=== PATIENT | female | born 1970 | race Caucasian/White ===

== ENCOUNTER 2022-08-05 12:37 | Outpatient (REF) | payer BC, SELFPAY | END 2022-08-05 12:38 | disposition home or self-care (01) | LOC: HO.MDS 12:37 | PROVIDERS: PCP Family Medicine; Visit Provider Internal Medicine | DX: R79.0 Abnormal level of blood mineral (principal); G25.81 Restless legs syndrome | CPT/HCPCS: 96365; J1756 ==

== ENCOUNTER 2022-08-17 09:34 | Outpatient (REF) | payer BC, SELFPAY | END 2022-08-17 09:35 | disposition home or self-care (01) | LOC: HO.MDS 09:34 | PROVIDERS: Visit Provider Internal Medicine | DX: R79.0 Abnormal level of blood mineral (principal); G25.81 Restless legs syndrome | CPT/HCPCS: 96365; J1756 ==

== ENCOUNTER 2022-08-25 10:41 | Outpatient (REF) | payer BC, SELFPAY | END 2022-08-25 10:42 | disposition home or self-care (01) | LOC: HO.MDS 10:41 | PROVIDERS: Visit Provider Internal Medicine | DX: R79.0 Abnormal level of blood mineral (principal); G25.81 Restless legs syndrome | CPT/HCPCS: 96365; J1756 ==